=== PATIENT | male | born 1980 | race Caucasian/White ===

== ENCOUNTER 2020-11-01 15:45 | Emergency (ER) | payer OTHER ==
[~2020-11-01] VITALS: Ht 165.1 cm; Wt 85.3 kg
[~2020-11-01 15:45] MED LIST: CIPRO500 MG PO; INTESTINEX1 CAP PO; PEPCID20 MG PO; SEPTRA DS TABLE1 TAB PO
[2020-11-01] MEDS ORDERED: INTESTINEX680 M2 PO (21:19)
[2020-11-01] MEDS ORDERED: LEVSIN0.125 MG PO (21:19)
[2020-11-01] MEDS ORDERED: PEPCID AC20 MG PO (21:19)
[2020-11-01] MEDS ORDERED: ONDANSETRON HCL4 MG PO (21:19)
== END 2020-11-01 21:30 | disposition home or self-care (01) ==
LOC: ER 15:45
DX: R10.84 Generalized abdominal pain (principal)